=== PATIENT | female | born 1990 | race Two or more races ===

== ENCOUNTER 2023-10-28 07:57 | Emergency (ER) | payer OTHER ==
[~2023-10-28] VITALS: Ht 167.6 cm; Wt 58.1 kg
[2023-10-28 08:00] VITALS: O2SAT 100
== END 2023-10-28 10:43 | disposition home or self-care (01) ==
LOC: ER 07:57
DX: N64.4 Mastodynia (principal)
CPT/HCPCS: 76641-TC; A4606; A4663

== ENCOUNTER 2023-11-05 11:35 | Emergency (ER) | payer OTHER ==
[~2023-11-05] VITALS: Ht 167.6 cm; Wt 58.1 kg
[2023-11-05 13:01] VITALS: BP 123/88; TEMP 98; O2SAT 99
== END 2023-11-05 13:01 | disposition home or self-care (01) ==
LOC: ER 11:35
DX: N64.4 Mastodynia (principal); R59.0 Localized enlarged lymph nodes
CPT/HCPCS: A4606; A4663

== ENCOUNTER 2024-07-08 04:54 | Emergency (ER) | payer OTHER ==
[~2024-07-08] VITALS: Ht 167.6 cm; Wt 59.0 kg
[~2024-07-08 04:54] MED LIST: ACET15SO5 EACH EAR; IBUP-1955 PO
[2024-07-08] MEDS: DEXAMETHASONE SOD PHOSPHATE 4 MG INJ IV ONE (05:45)
[2024-07-08] MEDS: ONDANSETRON 4 MG/2 ML VIAL IV ONE (05:45)
[2024-07-08] MEDS: HYDROMORPHONE 1 MG/1 ML DISP.SYRIN IV ONE (05:45)
[2024-07-08] MEDS ORDERED: HYDROMORPHONE 1 MG/1 ML DISP.SYRIN ONE (05:49)
[2024-07-08] MEDS ORDERED: ONDANSETRON 4 MG/2 ML VIAL ONE (05:49)
[2024-07-08] MEDS ORDERED: DEXAMETHASONE SOD PHOSPHATE 4 MG INJ ONE (05:49)
[2024-07-08] MEDS ORDERED: HYDR-3980 PO (05:54)
[2024-07-08] MEDS ORDERED: ONDA4TAB11 PO (05:54)
[2024-07-08] MEDS ORDERED: NEOM10DR11 RIGHT EAR (05:54)
[2024-07-08] MEDS: IV NORMAL SALINE 1000 ML BAG IV ONE (06:09)
[2024-07-08 08:12] VITALS: BP 118/76; TEMP 97.7; O2SAT 100
== END 2024-07-08 08:13 | disposition home or self-care (01) ==
LOC: ER 05:08
DX: H60.91 Unspecified otitis externa, right ear (principal)
CPT/HCPCS: 99284; 96374; 96375; 96361; J1171; J1100; J2405; J7040; A4606; A4663